=== PATIENT | female | born 1990 | race Caucasian/White ===

== ENCOUNTER 2016-07-13 19:58 | Emergency (ER) | payer BC, MEDICAID ==
[2016-07-13] MEDS ORDERED: DEXAMETHASONE SOD PHOS 10 MG/1 ML VIAL ONE (23:16)
== END 2016-07-13 23:27 | disposition home or self-care (01) ==
LOC: ED 19:58
DX: J20.9 Acute bronchitis, unspecified (principal)
CPT/HCPCS: 87804; 94664; 99283 ×2; J1100